=== PATIENT | female | born 1940 | race Hispanic/Latino ===

== ENCOUNTER → 2017-05-10 | Outpatient (CLI) | payer OTHER | END | disposition home or self-care (01) | LOC: RAH 12:32 | PROVIDERS: ATTEND Internal Medicine | DX: Z12.31 Encounter for screening mammogram for malignant neoplasm of breast (principal) | CPT/HCPCS: 77067 ==

== ENCOUNTER → 2017-07-29 | Outpatient (CLI) | payer OTHER ==
[~2017-07-29] VITALS: Ht 152.4 cm; Wt 61.2 kg
[~2017-07-29] MED LIST: REGADENOSON 0.4 MG/5 ML PF SYG IVP SCH
== END | disposition home or self-care (01) ==
LOC: SHCH 07:54
PROVIDERS: ATTEND Internal Medicine Cardiovascular Disease
DX: I25.119 Atherosclerotic heart disease of native coronary artery with unspecified angina pectoris (principal)
CPT/HCPCS: 78452; 93017; 96374; A9500 ×2; J2785

== ENCOUNTER 2018-04-03 18:10 | Observation (INO) | payer OTHER ==
[2018-04-03 18:56] LABS: BASOPHILS % (AUTO) 0.5 % (0.0-5.0); HEMATOCRIT 32.5 % (36-48); LYMPHOCYTES % (AUTO) 10.7 % (21.0-51.0); MEAN CORPUSCULAR HGB CONC 32.5 g/dL (32.0-36.0); MEAN CORPUSCULAR VOLUME 86.3 fL (79-99); MONOCYTES % (AUTO) 9.3 % (3.0-13.0); NEUTROPHILS % (AUTO) 78.5 % (40.0-77.0); PLATELET COUNT (AUTO) 298 K/uL (130-400); RED BLOOD CELL COUNT(AUTO) 3.77 MIL/uL (4.00-5.50); RED CELL DISTRIBUTION WIDTH 14.2 % (11.0-15.5); WHITE BLOOD COUNT (AUTO) 13.7 K/uL (4.8-10.8)
[2018-04-03 19:16] LABS: CREATININE 1.4 mg/dL (0.5-1.5); POTASSIUM 4.3 mmol/L (3.5-5.1)
[2018-04-03 19:21] LABS: ALBUMIN 3.4 g/dL (3.5-5.0); BILIRUBIN,TOTAL 0.5 mg/dL (0.2-1.0); TOTAL PROTEIN, SERUM 7.8 g/dL (6.0-8.3)
[2018-04-03 19:23] LABS: INR 0.93 (0.85-1.15); PARTIAL THROMBOPLASTIN TIME 29.9 SEC (26.3-35.5); PROTHROMBIN TIME 9.8 SEC (9.6-11.6)
[2018-04-03] MEDS ORDERED: FUROSEMIDE 10 MG/ML 4ML VIAL ONE (19:43)
[2018-04-03] MEDS ORDERED: ASPIRIN 325MG EC TAB 325 MG TABLET.DR PO ONE (19:43)
[2018-04-03] MEDS ORDERED: ONDANSETRON HCL 4 MG/2 ML VIAL IV PRN (20:15)
[2018-04-03] MEDS ORDERED: NITROGLYCERIN 1GM/1 INCH PACKET TD SCH (20:15)
[2018-04-03] MEDS ORDERED: MORPHINE SULFATE 2 MG/ML 1ML SYG IV PRN (20:15)
[2018-04-03] MEDS ORDERED: DIAZEPAM 2 MG TAB PO PRN (20:15)
[2018-04-03] MEDS ORDERED: ACETAMINOPHEN 325 MG TAB PO PRN (20:15)
[2018-04-03] MEDS ORDERED: FUROSEMIDE 10 MG/ML 4ML VIAL IVP SCH (21:00)
[2018-04-03] MEDS ORDERED: METOPROLOL TARTRATE 25 MG TAB PO SCH (21:00)
[2018-04-03] MEDS ORDERED: FAMOTIDINE/PF 20 MG/2 ML VIAL IV SCH (21:00)
[2018-04-03] MEDS ORDERED: ENOXAPARIN SODIUM 40 MG/0.4 ML SYRINGE SQ SCH (21:00)
[2018-04-03] MEDS ORDERED: ENOXAPARIN SODIUM 30 MG/0.3 ML SQ ONE (21:50)
[2018-04-03] MEDS ORDERED: ACETAMINOPHEN 325 MG TAB ONE (21:50)
[2018-04-03] MEDS ORDERED: FAMOTIDINE 20MG TAB 20 MG TAB ONE (21:50)
[2018-04-03] MEDS ORDERED: METOPROLOL TARTRATE 25 MG TAB ONE (21:51)
[2018-04-03] MEDS: ALBUTEROL SULFATE 0.083% 2.5 MG/3 ML INH IH SCH (23:31)
[2018-04-04] MEDS ORDERED: GUAIFENESIN-CODEINE 5 ML SYRUP ONE (02:54)
[2018-04-04] MEDS ORDERED: PHARMACY COMMUNICATION MISC SCH (03:45)
[2018-04-04] MEDS ORDERED: ALBUTEROL SULFATE 0.083% 2.5 MG/3 ML INH IH ONE ×2 (06:21→11:11)
[2018-04-04] MEDS: ALBUTEROL SULFATE 0.083% 2.5 MG/3 ML INH IH SCH ×2 (06:24→15:08)
[2018-04-04] MEDS ORDERED: LEVO50 PO (08:41)
[2018-04-04] MEDS ORDERED: CLOP75TA32 PO (08:41)
[2018-04-04] MEDS ORDERED: AMLO10TA7 PO (08:41)
[2018-04-04] MEDS ORDERED: SIMV40TA5 PO (08:41)
[2018-04-04] MEDS ORDERED: GLIP10TA9 PO ×2 (08:41)
[2018-04-04] MEDS ORDERED: CARV6.25 PO (08:41)
[2018-04-04] MEDS ORDERED: FURO20TA4 PO (08:41)
[2018-04-04] MEDS ORDERED: ASPIRIN 325 MG TABLET ONE (08:42)
[2018-04-04] MEDS ORDERED: FUROSEMIDE 10 MG/ML 4ML VIAL ONE (08:42)
[2018-04-04] MEDS ORDERED: NITROGLYCERIN 1GM/1 INCH PACKET TD ONE ×2 (08:43→17:28)
[2018-04-04] MEDS ORDERED: METOPROLOL TARTRATE 25 MG TAB ONE (08:43)
[2018-04-04] MEDS ORDERED: ENOXAPARIN SODIUM 40 MG/0.4 ML SYRINGE SQ ONE (08:43)
[2018-04-04] MEDS ORDERED: FAMOTIDINE/PF 20 MG/2 ML VIAL IV ONE (08:44)
[2018-04-04] MEDS ORDERED: INSULIN HUMULIN R 100 UNIT/ML 3ML ONE ×2 (08:45→12:31)
[2018-04-04] MEDS ORDERED: DIAZEPAM 2 MG TAB ONE (09:00)
[2018-04-04] MEDS ORDERED: ASPIRIN 325 MG TABLET PO SCH (09:00)
--- NOTE | 2018-04-04 10:42 | NUR ---
SUMA Lopes met with pt and Te [phone]. Pt reports she is independent, no in home care services or DME. Pt states she really needs walker, referred pt back to her PCP Dr Neisha Perez [phone] for rx. Plan is home at nc Addendum: 04/04/18 at 1050 by RICH REYES SS Amended: Links added.
[2018-04-04] MEDS ORDERED: ACETAMINOPHEN 325 MG TAB ONE ×2 (12:32→12:34)
== END 2018-04-04 17:53 | disposition left against medical advice (07) ==
LOC: EDH 18:10 → EDHIP 19:50
PROVIDERS: ADMIT Internal Medicine; ATTEND Internal Medicine
DX: R06.02 Shortness of breath (principal); R07.89 Other chest pain; I11.0 Hypertensive heart disease with heart failure; I50.9 Heart failure, unspecified; E11.9 Type 2 diabetes mellitus without complications; E78.5 Hyperlipidemia, unspecified; M19.90 Unspecified osteoarthritis, unspecified site; I25.10 Atherosclerotic heart disease of native coronary artery without angina pectoris; Z95.1 Presence of aortocoronary bypass graft
CPT/HCPCS: 36415 ×2; 71045; 80053; 82550; 82948 ×4; 83880 ×2; 84484 ×3; 85025; 85610; 85730; 87804 ×2; 93005; 93880; 94640 ×3; 94664; 99291; G0378 ×22; J1650 ×2; J1815 ×2; J1940 ×2; J3490

== ENCOUNTER → 2018-04-22 | Outpatient (CLI) | payer OTHER ==
[~2018-04-22] MED LIST changes: +AMLO10TA7 PO; +CARV6.25 PO; +CLOP75TA32 PO; +FURO20TA4 PO; +GLIP10TA9 PO; +LEVO50 PO; -REGADENOSON 0.4 MG/5 ML PF SYG IVP SCH; +SIMV40TA5 PO
== END | disposition home or self-care (01) ==
LOC: RAH 15:05
PROVIDERS: ATTEND Internal Medicine
DX: I70.90 Unspecified atherosclerosis (principal); I73.9 Peripheral vascular disease, unspecified
CPT/HCPCS: 93925

== ENCOUNTER 2019-01-11 11:27 | Inpatient (IN) | payer OTHER ==
[~2019-01-11] VITALS: Ht 152.4 cm; Wt 65.0 kg
[~2019-01-11 11:27] MED LIST changes: +SIMV-46 PO; -SIMV40TA5 PO
[2019-01-11 12:00] LABS: BASOPHILS % (AUTO) 0.4 % (0.0-5.0); EOSINOPHILS % (AUTO) 0.1 % (0.0-8.0); HEMATOCRIT 28.9 % (36-48); LYMPHOCYTES % (AUTO) 7.5 % (21.0-51.0); MEAN CORPUSCULAR HEMOGLOBIN 28.8 pg (27.0-33.0); MEAN CORPUSCULAR HGB CONC 33.5 g/dL (32.0-36.0); MEAN CORPUSCULAR VOLUME 86.1 fL (79-99); PLATELET COUNT (AUTO) 229 K/uL (130-400); RED BLOOD CELL COUNT(AUTO) 3.36 MIL/uL (4.00-5.50); RED CELL DISTRIBUTION WIDTH 14.8 % (11.0-15.5); WHITE BLOOD COUNT (AUTO) 13.3 K/uL (4.8-10.8)
[2019-01-11] MEDS ORDERED: ASPIRIN 325 MG TABLET ONE (12:00)
[2019-01-11] MEDS ORDERED: NITROGLYCERIN 1GM/1 INCH PACKET TD ONE (12:00)
[2019-01-11 12:07] LABS: CREATININE 1.7 mg/dL (0.5-1.5); INR 0.96 (0.85-1.15); PROTHROMBIN TIME 10.1 SEC (9.6-11.6)
[2019-01-11 12:11] LABS: ALBUMIN 3.2 g/dL (3.5-5.0); TOTAL PROTEIN, SERUM 7.4 g/dL (6.0-8.3)
[2019-01-11] MEDS ORDERED: FUROSEMIDE 10 MG/ML 2ML VIAL ONE (12:15)
[2019-01-11 12:18] LABS: B-TYPE NATRIURETIC PEPTIDE 1190 pg/mL (0-100)
[2019-01-11 13:17] LABS: APPEARANCE,URINE Cloudy (CLEAR); BILIRUBIN,URINE Negative (NEGATIVE); COLOR,URINE Yellow (YELLOW); GLUCOSE, URINE (UA) Negative (NEGATIVE); KETONES,URINE Negative (NEGATIVE); LEUKOCYTE ESTERASE ,URINE Large (NEGATIVE); NITRATE,URINE Negative (NEGATIVE); OCCULT BLOOD,URINE Nonhemolyzed Trace (NEGATIVE); PROTEIN,URINE POS 2+ mg/dL (NEGATIVE); UROBILINOGEN,URINE 0.2 mg/dL (0.2-1.0)
[2019-01-11 13:27] LABS: BACTERIA,URINE Moderate /HPF (None Seen); RBC,URINE 0-1 /HPF (0-1); SQUAMOUS EPITHELIAL CELL,UR Few /HPF (0-2); WBC,URINE 26-50 /HPF (0-1)
[2019-01-11] MEDS ORDERED: HYDROCODONE/ACETAMINOPHEN 5/325 MG TAB ONE (14:26)
[2019-01-11 15:32] VITALS: BP 156/63
[2019-01-11] MEDS ORDERED: PIOG15TA66 PO (15:55)
[2019-01-11] MEDS ORDERED: ACETAMINOPHEN 325 MG TAB PO PRN (16:00)
[2019-01-11] MEDS ORDERED: ONDANSETRON HCL 4 MG/2 ML VIAL IVP PRN (16:00)
[2019-01-11] MEDS ORDERED: LABETALOL 20 MG/4 ML DISP.SYRIN IV PRN (16:00)
[2019-01-11] MEDS ORDERED: MORPHINE SULFATE 2 MG/ML 1ML SYG IVP PRN (16:00)
[2019-01-11] MEDS ORDERED: ENOXAPARIN SODIUM 30 MG/0.3 ML SQ SCH (16:00)
[2019-01-11] MEDS ORDERED: HYDROCODONE/ACETAMINOPHEN 5/325 MG TAB PO PRN (16:00)
[2019-01-11] MEDS ORDERED: POTASSIUM CHLORIDE 10% ELIXIR 20 MEQ/15 ML UDCUP PO PRN (16:00)
[2019-01-11] MEDS ORDERED: LIDOCAINE HCL-MPF 1% 2ML VIAL IJ PRN (16:00)
[2019-01-11] MEDS ORDERED: POTASSIUM CHLORIDE 20MEQ/100ML 100 ML IV PRN ×2 (16:00→19:00)
[2019-01-11] MEDS: INSULIN R PO SS1 SQ SCH ×2 (16:24→20:41)
[2019-01-11 18:20] LABS: TROPONIN I 0.05 ng/mL (0.00-0.06)
[2019-01-11] MEDS ORDERED: MAGNESIUM 2GM PREMIX 50ML 50 ML IV PRN (19:00)
[2019-01-11] MEDS: FUROSEMIDE 10 MG/ML 4ML VIAL IVP SCH (19:44)
[2019-01-11] MEDS: ATORVASTATIN CALCIUM 40 MG TABLET PO SCH (19:44)
[2019-01-11 19:52] VITALS: BP 142/58
[2019-01-11 23:29] LABS: TROPONIN I 0.06 ng/mL (0.00-0.06)
[2019-01-12] VITALS: BP 129/54
--- NOTE | 2019-01-12 00:59 | NUR ---
DIURESE Pt on lasix iv,voids in the bathroom,placed 02 extension tubing,adan well.Denies chest pain or sob.Pt instructed re fluid restriction.
[2019-01-12 04:00] VITALS: BP 130/53
[2019-01-12 05:21] LABS: BASOPHILS % (AUTO) 0.9 % (0.0-5.0); EOSINOPHILS % (AUTO) 1.9 % (0.0-8.0); HEMATOCRIT 25.8 % (36-48); LYMPHOCYTES % (AUTO) 13.4 % (21.0-51.0); MEAN CORPUSCULAR HEMOGLOBIN 28.6 pg (27.0-33.0); MEAN CORPUSCULAR HGB CONC 33.3 g/dL (32.0-36.0); MEAN CORPUSCULAR VOLUME 85.8 fL (79-99); MONOCYTES % (AUTO) 9.4 % (3.0-13.0); NEUTROPHILS % (AUTO) 74.4 % (40.0-77.0); NUCLEATED RED BLOOD CELLS 0.1 % (0.0-0.19); PLATELET COUNT (AUTO) 245 K/uL (130-400); RED CELL DISTRIBUTION WIDTH 14.5 % (11.0-15.5); WHITE BLOOD COUNT (AUTO) 10.9 K/uL (4.8-10.8)
[2019-01-12] MEDS: INSULIN R PO SS1 SQ SCH ×4 (05:28→21:00)
[2019-01-12 05:42] LABS: CREATININE 1.6 mg/dL (0.5-1.5); MAGNESIUM 2.1 mg/dL (1.80-2.40); POTASSIUM 3.3 mmol/L (3.5-5.1)
[2019-01-12 07:00] VITALS: BP 152/62
[2019-01-12] MEDS: FUROSEMIDE 10 MG/ML 4ML VIAL IVP SCH ×2 (08:45→21:27)
[2019-01-12] MEDS: ASPIRIN 81MG TAB.CHEW PO SCH (08:46)
[2019-01-12] MEDS: POTASSIUM CHLORIDE 20 MEQ ERTAB PO PRN ×2 (08:50→18:19)
[2019-01-12 11:00] VITALS: BP 146/65
--- NOTE | 2019-01-12 11:52 | NUR ---
DCP CM met with pt discussed dc plans. Pt is independent prior to admission, lives at home w/spouse, son lives close by. Has a walker and shower chair. Denies any other equipments/services. Feels safe to go back home, spouse and son able to assist with transportation and needs as necessary. DC plan to home once stable. CM to cont to follow up. Addendum: 01/12/19 at 1154 by ANTHONY MICHELLE LVN CM Amended: Links added.
[2019-01-12] MEDS ORDERED: ACETAMINOPHEN 325 MG TAB PO PRN ×2 (14:00)
[2019-01-12] MEDS ORDERED: NITROGLYCERIN 0.4 MG SL TAB SL PRN (14:00)
[2019-01-12] MEDS ORDERED: DEXTROSE 50%-WATER 50 ML DISP.SYRIN IV PRN (14:00)
[2019-01-12] MEDS ORDERED: GLUCAGON 1MG KIT 1 MG ML IM PRN (14:00)
[2019-01-12] MEDS ORDERED: LIDOCAINE HCL-MPF 1% 2ML VIAL IV PRN (14:00)
[2019-01-12] MEDS ORDERED: POTASSIUM CHLORIDE 20MEQ/100ML 100 ML IV PRN (14:00)
[2019-01-12] MEDS ORDERED: GUAIFENESIN-DM 200/20 MG 10 ML PO PRN (14:00)
[2019-01-12] MEDS ORDERED: LACTULOSE 20 GM/30 ML UDCUP PO PRN (14:00)
[2019-01-12] MEDS ORDERED: ONDANSETRON HCL 4 MG/2 ML VIAL IV PRN (14:00)
[2019-01-12] MEDS ORDERED: POTASSIUM CHLORIDE 10% ELIXIR 20 MEQ/15 ML UDCUP PO PRN (14:00)
[2019-01-12] MEDS: AZITHROMYCIN 500MG+NS 250ML 250 ML IV SCH (15:01)
[2019-01-12] MEDS: CEFTRIAXONE SODIUM 1 GM IVP SCH (15:01)
[2019-01-12 16:00] VITALS: BP 145/56
--- NOTE | 2019-01-12 16:04 | NUR ---
1550 had pt sign IM Letter.Faxed to [phone] and placed in chart under consent tab
[2019-01-12] MEDS: INSULIN HUMULIN R 100 UNIT/ML 3ML SQ SCH ×2 (16:30→21:00)
[2019-01-12 19:25] VITALS: BP 153/68
[2019-01-12] MEDS: POTASSIUM CHLORIDE 20 MEQ ERTAB PO SCH (21:27)
[2019-01-12] MEDS: ATORVASTATIN CALCIUM 40 MG TABLET PO SCH (21:27)
[2019-01-13] VITALS (7 sets, daily range): BP systolic 132–158; BP diastolic 57–79
[2019-01-13 04:24] LABS: HEMOGLOBIN A1C 9.7 % (4.0-6.0)
[2019-01-13 04:43] LABS: THYROID STIMULATING HORMONE 5.11 uIU/mL (0.36-3.74)
[2019-01-13 05:30] LABS: % IRON SATURATION 6.3 % (22-44)
[2019-01-13] MEDS: INSULIN R PO SS1 SQ SCH ×4 (06:02→20:32)
[2019-01-13] MEDS: INSULIN HUMULIN R 100 UNIT/ML 3ML SQ SCH ×4 (06:02→20:32)
[2019-01-13] MEDS: LEVOTHYROXINE 50 MCG TABLET PO SCH (06:35)
[2019-01-13] MEDS ORDERED: COMPOUND IV MISC 1 EACH IVSOLN MISC PRN (09:00)
[2019-01-13] MEDS: FUROSEMIDE 10 MG/ML 4ML VIAL IVP SCH ×2 (09:32→20:24)
[2019-01-13] MEDS: ASPIRIN 81MG TAB.CHEW PO SCH (09:33)
[2019-01-13] MEDS: CARVEDILOL 6.25 MG TABLET PO SCH (09:36)
[2019-01-13] MEDS: CLOPIDOGREL BISULFATE 75 MG TAB PO SCH (09:37)
[2019-01-13] MEDS: POTASSIUM CHLORIDE 20 MEQ ERTAB PO SCH (09:37)
[2019-01-13] MEDS: IRON SUCROSE COMPLEX 100 MG in SODIUM CHLORIDE 0.9% 50 ML IV SCH (09:49)
[2019-01-13 11:38] LABS: BASOPHILS % (AUTO) 0.9 % (0.0-5.0); EOSINOPHILS % (AUTO) 2.8 % (0.0-8.0); HEMATOCRIT 25.1 % (36-48); LYMPHOCYTES % (AUTO) 19.8 % (21.0-51.0); MEAN CORPUSCULAR HEMOGLOBIN 29.1 pg (27.0-33.0); MEAN CORPUSCULAR HGB CONC 33.6 g/dL (32.0-36.0); MEAN CORPUSCULAR VOLUME 86.7 fL (79-99); MONOCYTES % (AUTO) 9.6 % (3.0-13.0); NEUTROPHILS % (AUTO) 66.9 % (40.0-77.0); PLATELET COUNT (AUTO) 261 K/uL (130-400); WHITE BLOOD COUNT (AUTO) 9.1 K/uL (4.8-10.8)
[2019-01-13 11:40] LABS: CREATININE 1.5 mg/dL (0.5-1.5); POTASSIUM 3.9 mmol/L (3.5-5.1)
[2019-01-13] MEDS: CEFTRIAXONE SODIUM 1 GM IVP SCH (15:54)
[2019-01-13] MEDS: AZITHROMYCIN 500MG+NS 250ML 250 ML IV SCH (15:54)
[2019-01-13] MEDS: ATORVASTATIN CALCIUM 40 MG TABLET PO SCH (20:24)
--- NOTE | 2019-01-13 22:10 | NUR ---
02 DEPENDENT Pt uses O2 at home.
[2019-01-14 04:00] VITALS: BP 112/73
[2019-01-14 05:05] LABS: BASOPHILS % (AUTO) 0.9 % (0.0-5.0); EOSINOPHILS % (AUTO) 4.7 % (0.0-8.0); HEMATOCRIT 28.1 % (36-48); LYMPHOCYTES % (AUTO) 22.7 % (21.0-51.0); MEAN CORPUSCULAR HEMOGLOBIN 28.5 pg (27.0-33.0); MEAN CORPUSCULAR HGB CONC 33.4 g/dL (32.0-36.0); MEAN CORPUSCULAR VOLUME 85.2 fL (79-99); MONOCYTES % (AUTO) 11.4 % (3.0-13.0); NEUTROPHILS % (AUTO) 60.3 % (40.0-77.0); PLATELET COUNT (AUTO) 328 K/uL (130-400); RED BLOOD CELL COUNT(AUTO) 3.29 MIL/uL (4.00-5.50); RED CELL DISTRIBUTION WIDTH 14.7 % (11.0-15.5); WHITE BLOOD COUNT (AUTO) 8.7 K/uL (4.8-10.8)
[2019-01-14 05:11] LABS: CREATININE 1.2 mg/dL (0.5-1.5); MAGNESIUM 1.9 mg/dL (1.80-2.40); PHOSPHORUS 3.3 mg/dL (2.5-4.9); POTASSIUM 3.8 mmol/L (3.5-5.1)
[2019-01-14] MEDS: LEVOTHYROXINE 50 MCG TABLET PO SCH (05:29)
[2019-01-14] MEDS: INSULIN HUMULIN R 100 UNIT/ML 3ML SQ SCH ×4 (05:36→22:17)
[2019-01-14] MEDS: INSULIN R PO SS1 SQ SCH ×3 (05:36→16:30)
[2019-01-14 07:46] VITALS: BP 157/58
[2019-01-14] MEDS: FUROSEMIDE 10 MG/ML 4ML VIAL IVP SCH ×2 (09:40→22:16)
[2019-01-14] MEDS: ASPIRIN 81MG TAB.CHEW PO SCH (09:40)
[2019-01-14] MEDS: CLOPIDOGREL BISULFATE 75 MG TAB PO SCH (09:40)
[2019-01-14] MEDS: IRON SUCROSE COMPLEX 100 MG in SODIUM CHLORIDE 0.9% 50 ML IV SCH (09:41)
[2019-01-14] MEDS: CARVEDILOL 6.25 MG TABLET PO SCH (09:47)
[2019-01-14 11:25] VITALS: BP 141/58
[2019-01-14] MEDS: CEFTRIAXONE SODIUM 1 GM IVP SCH (11:45)
[2019-01-14] MEDS: AZITHROMYCIN 500MG+NS 250ML 250 ML IV SCH (11:45)
[2019-01-14 16:00] VITALS: BP 147/61
[2019-01-14] MEDS: ZOSYN 3.375GM+NS 50ML 50 ML IV SCH (16:58)
[2019-01-14 19:50] VITALS: BP 160/65
[2019-01-14] MEDS: ATORVASTATIN CALCIUM 40 MG TABLET PO SCH (22:16)
[2019-01-14 23:43] VITALS: BP 152/70
[2019-01-15 03:40] VITALS: BP 146/61
[2019-01-15] MEDS: ZOSYN 3.375GM+NS 50ML 50 ML IV SCH ×2 (05:17→16:00)
[2019-01-15] MEDS: LEVOTHYROXINE 50 MCG TABLET PO SCH (06:41)
[2019-01-15] MEDS: INSULIN HUMULIN R 100 UNIT/ML 3ML SQ SCH ×3 (06:41→16:30)
--- NOTE | 2019-01-15 07:15 | NUR ---
note AAOX3. DENIES PAIN OR DISCOMFORT. NO DISTRESS OR SOB. BBS CLEAR. NO COUGH. NO N/V NO URINARY SYMPTOMS. O2@2LNC. HOME O2 DEPENDENT. SHE HAS UTI POSITIVE FOR ESBL. ISOLATION FOR ESBL AND DROPLET FOR PNEUMONIA SYMPTOMS.
[2019-01-15 07:26] LABS: BASOPHILS % (AUTO) 1.1 % (0.0-5.0); EOSINOPHILS % (AUTO) 2.4 % (0.0-8.0); HEMATOCRIT 30.3 % (36-48); LYMPHOCYTES % (AUTO) 21.3 % (21.0-51.0); MEAN CORPUSCULAR HEMOGLOBIN 28.5 pg (27.0-33.0); MEAN CORPUSCULAR HGB CONC 33.6 g/dL (32.0-36.0); MEAN CORPUSCULAR VOLUME 84.9 fL (79-99); MONOCYTES % (AUTO) 8.8 % (3.0-13.0); NEUTROPHILS % (AUTO) 66.4 % (40.0-77.0); PLATELET COUNT (AUTO) 387 K/uL (130-400); RED BLOOD CELL COUNT(AUTO) 3.57 MIL/uL (4.00-5.50); RED CELL DISTRIBUTION WIDTH 14.9 % (11.0-15.5)
[2019-01-15 07:29] LABS: CREATININE 1.2 mg/dL (0.5-1.5); POTASSIUM 3.8 mmol/L (3.5-5.1)
[2019-01-15 07:46] VITALS: BP 168/67
--- NOTE | 2019-01-15 10:00 | NUR ---
NOTE DR BONILLA STOPPED BY AND ORDERED PATIENT CAN BE DISCHARGED F/U 2 WEEKS AT HIS OFFICE.
[2019-01-15] MEDS: ASPIRIN 81MG TAB.CHEW PO SCH (10:21)
[2019-01-15] MEDS: CARVEDILOL 6.25 MG TABLET PO SCH (10:21)
[2019-01-15] MEDS: FUROSEMIDE 40 MG TABLET PO SCH ×2 (10:21→17:51)
[2019-01-15] MEDS: CLOPIDOGREL BISULFATE 75 MG TAB PO SCH (10:21)
[2019-01-15] MEDS: IRON SUCROSE COMPLEX 100 MG in SODIUM CHLORIDE 0.9% 50 ML IV SCH (10:22)
--- NOTE | 2019-01-15 11:20 | NUR ---
NOTE DR RED STOPPED BY AND ALSO OKAYED DC HOME. SHE WILL FOLLOW UP WITH HIM ORDERED.
[2019-01-15 11:31] VITALS: BP 144/66
[2019-01-15] MEDS ORDERED: FURO40TA7 PO (12:21)
[2019-01-15] MEDS ORDERED: ASPI-1005 PO (12:21)
[2019-01-15] MEDS ORDERED: FERR325T29 PO (12:21)
--- NOTE | 2019-01-15 15:15 | NUR ---
note DISCHARGE INSTRUCTIONS GIVEN AT THIS TIME. VERBALIZED UNDERSTANDING. REFER TO DC SUMMARY FOR DETAILS. AT HER SIDE DURING THIS.
[2019-01-16] VITALS: BP 100/51
[2019-01-16 03:44] VITALS: BP 111/57
== END 2019-01-15 15:30 | disposition home or self-care (01) | DRG 291 ==
LOC: EDH 11:27 → EDHIP 12:40 → OBSVTOIN 12:40 → 4CH 14:58
PROVIDERS: ADMIT Internal Medicine Critical Care Medicine; ATTEND Internal Medicine Critical Care Medicine
DX: I13.0 Hypertensive heart and chronic kidney disease with heart failure and stage 1 through stage 4 chronic kidney disease, or unspecified chronic kidney disease (principal); I50.33 Acute on chronic diastolic (congestive) heart failure; J18.1 Lobar pneumonia, unspecified organism; N39.0 Urinary tract infection, site not specified; N17.9 Acute kidney failure, unspecified; Z16.24 Resistance to multiple antibiotics; Z16.12 Extended spectrum beta lactamase (ESBL) resistance; M19.90 Unspecified osteoarthritis, unspecified site; I25.10 Atherosclerotic heart disease of native coronary artery without angina pectoris; N18.9 Chronic kidney disease, unspecified; E78.5 Hyperlipidemia, unspecified; E66.9 Obesity, unspecified; E11.22 Type 2 diabetes mellitus with diabetic chronic kidney disease; E03.9 Hypothyroidism, unspecified; D63.8 Anemia in other chronic diseases classified elsewhere; E87.6 Hypokalemia; B96.1 Klebsiella pneumoniae [K. pneumoniae] as the cause of diseases classified elsewhere; I07.1 Rheumatic tricuspid insufficiency; Z95.1 Presence of aortocoronary bypass graft; Z79.84 Long term (current) use of oral hypoglycemic drugs; Z79.02 Long term (current) use of antithrombotics/antiplatelets; Z99.81 Dependence on supplemental oxygen; Z90.49 Acquired absence of other specified parts of digestive tract; Z68.28 Body mass index [BMI] 28.0-28.9, adult
CPT/HCPCS: 36415; 71045; 71250; 76770; 80048; 80053; 80061; 81001; 82270; 82550; 82728; 82947; 82948; 83036; 83540; 83550; 83735; 83874; 83880; 84100; 84132; 84439; 84443; 84484; 85025; 85610; 85730; 87040; 87077; 87088; 87186; 93005; 93306; 99291; G0378; J0456; J0696; J1650; J1756; J1815; J1940; J2543; J3475; J7070

== ENCOUNTER → 2020-06-24 | Outpatient (CLI) | payer OTHER ==
[~2020-06-24] VITALS: Ht 152.4 cm; Wt 64.0 kg
[~2020-06-24] MED LIST changes: -AMLO10TA7 PO; +ASPI-1005 PO; +FERR325T29 PO; -FURO20TA4 PO; +FURO40TA7 PO; +PIOG15TA66 PO; +REGADENOSON 0.4 MG/5 ML PF SYG IVP SCH
== END ==
LOC: SHCH 07:57
PROVIDERS: ATTEND Internal Medicine Cardiovascular Disease
DX: I25.10 Atherosclerotic heart disease of native coronary artery without angina pectoris (principal); Z95.1 Presence of aortocoronary bypass graft
CPT/HCPCS: 78452; 93017; 96374; A9500 ×2